=== PATIENT | female | born 1980 | race Caucasian/White ===

== ENCOUNTER 2018-11-01 04:20 | Outpatient (CLI) | payer OTHER, SELFPAY ==
--- NOTE | 2018-11-01 05:36 | OB.TRI.NOTE ---
- Problem List (1) Complete Status: Acute (2) demise before 20 weeks with retention of fetus Status: Acute History of Present Illness Date of Service: 11/01/18 Was patient seen by the physician?: Yes Date of Service: 11/01/18 Final WEST: 01/25/19 Gestational age: 27 Weeks and 6 Days History of Present Illness: 38-year-old G 13 P9 at 27 weeks 6 days presents after complete . Patient had only one visit at 17 weeks in August with a window display designer in the area and she had had spotting throughout the beginning of the and then began bleeding yesterday. She has not felt movement much throughout the and her fundal height was low for gestational age. The chicken and fish cleaner had recommended her to have an evaluation with the patient declined until now. She denies any fevers or abnormal discharge other than bleeding. Upon arrival on labor and delivery patient had a spontaneous loss of the entire contents and an intact gestational sac with intact placenta was seen and a severely emaciated and grossly small for gestational age appearance was noted at delivery with suspicion of loss between 18 and 20 weeks with retention of . The fetus had no gross evidence of genetic abnormalities or trauma. There was a nuchal cord x1 but it was very loose. Placenta was grossly normal in appearance but extremely small for gestational age but consistent with the age of when the was probably lost. - Pertinent Past Medical History Pertinent Past Medical History: Patient has had 9 vaginal deliveries term uncomplicated and 3 early miscarriages between 7 and 9 weeks without complication. Laboratory Studies: Discussed with patient and recommend CBC type and screen hemoglobin A1c TSH and antiphospholipid antibody panel. Patient only consents to CBC and type and screen drawn here she is going to have the other blood work drawn with another provider Review of Systems Constitutional: Denies: Fever, Malaise Eyes: Denies: Blurred vision, Vision Change HEENT: Denies: Head Aches, Visual Changes Cardiovascular: Denies: Chest Pain, Palpitations Respiratory: Denies: Cough, Shortness of Breath, Wheezing Gastrointestinal: Denies: Abdominal Pain, Diarrhea, Nausea, Vomiting Genitourinary: Denies: Dysuria, Hematuria Gynecological: Reports: Vaginal bleeding Musculoskeletal: Denies: Joint Pain, Muscle pain Skin: Denies: Lesions, Rash Neurological: Denies: Blurred vision, Focal weakness, Headaches Psychiatric: Denies: Anxiety, Depression Endocrine: Denies: Heat/ Cold Intolerance Hematologic/ Lymphatic: Denies: Easy Bruising, Easy Bleeding Physical Exam General: Alert, Cooperative, No apparent distress HEENT: Atraumatic, Normocephalic. Negative for: Thyromegaly, Lymphadenopathy Cardiovascular: Regular rate Lungs: Normal air movement Abdomen: Soft, Non Tender Neurological: Deep Tendon Reflexes 2+/4 and Symmetrical, Neuro grossly intact. Negative for: Clonus CUSHION STUFFER: Normal external genitalia - Bleeding evaluated in approximately 200 cc with minimal bleeding afterwards. Negative for: Vulvar lesions Estimated gestational size: Small for gestational age NST - FHR Rate Baby A Baseline: Confirmed demise upon initial evaluation, likely loss 2 mo ago Impression/Plan 38-year-old G 13 P9 at 27 weeks 6 days by gestational age but size appearing to be 18 to 20 weeks presents with complete miscarriage and IUFD Complete spontaneous loss prior to evaluation by physician. Placenta will be sent for studies and CBC and type and screen ordered. Patient hemodynamically stable and bleeding asymptomatic we will monitor for any complications and if stable DC home today.
[2018-11-01 06:00] LABS: Absolute Lymphocyte Count 1.07 X10^3/ul (0.83-4.51); Basophil# 0.01 X10^3/uL; Basophil% 0.1 % (0-1); Eosinophil# 0.08 X10^3/uL; Eosinophils% 0.9 % (0-5); Hematocrit 40.2 % (37-47); Hemoglobin 13.8 g/dl (12.0-15.0); Lymphocyte # 1.07 X10^3/ul (4.0); Lymphocyte % 12.5 % (19-41); Mean Corp Hgb Conc 34.3 g/gl (32-36); Mean Corpuscular Hgb 30.7 pg (27.0-32.0); Mean Corpuscular Volume 89.5 fL (81-99); Mean Platelet Vol. 9.2 fl (6.2-12.0); Monocyte# 0.42 X10^3/uL; Monocyte% 4.9 % (0-10); Neutrophil # 6.95 X10^3/uL (2.7-7.7); Neutrophil % 81.5 % (47-70); Platelet Count 218 K/mm3 (150-450); RBC Distribution Width CV 12.2 % (11.6-14.6); RBC Distribution Width SD 39.2 fl (35.1-43.9); Red Blood Count 4.49 M/mm3 (4.2-5.4); White Blood Count 8.5 K/mm3 (4.4-11.0)
[2018-11-01 06:03] LABS: POSITIVE COUNT NO; POSITIVE DIFFERENTIAL NO; POSITIVE MORPHOLOGY NO
--- NOTE | 2018-11-01 06:49 | NURSING ---
fetus weight 122grams; Head circumference 5inches; length 8 inches.
[2018-11-01 07:42] VITALS: BMI 30.9
--- NOTE | 2018-11-01 08:26 | PLAC_PTH ---
PATIENT: OMI DAVEY LOC: [facility] U#:[id number] AGE/SX: 38/F ROOM: RE11/01/[address]: Dr. Tania Cr MD : 1980 BED: DIS: 11/01/2018 SPEC #: [id number] RECD: 11/01/18 09:07 STATUS: RAI ROSARIOEsteban #: [id number] YUDY: 11/01/18 08:[address]: Tania Cr DEPT: SURGICAL PATHOLOGY RECD BY: Marcelino Blas Tissues: Placenta, NOS Procedures: Surgery Specimen Level V HEADER OPERATION: Vaginal delivery PRE-OP DIAGNOSIS: Routine vaginal delivery; demise TISSUE SUBMITTED: Placenta MICROSCOPIC DIAGNOSIS Placenta: Placental disc - immature placenta (81 gm). - Changes consistent with maternal floor infarction. - Increased intervillous and perivillous fibrin deposition and increased syncytial knots. Membranes - autolytic changes. Umbilical cord - three blood vessels and autolytic changes. SJ:rg 11/03/18 COMMENT Case has been reviewed in consultation with Dr. Morse who concurs with the above diagnosis. IDC:AM MICROSCOPIC DESCRIPTION Slides are reviewed. GROSS DESCRIPTION SPECIMEN: PLACENTA / CLINICAL INFORMATION: A. Weight: Not stated B. Gestational Age: 27 weeks C. Sex: Female Received in fixative is one container labeled with the patient's name and designated placenta. The specimen consists of an immature placenta with attached membranes and eccentrically attached umbilical cord. PLACENTAL WEIGHT (POST FIXATION): 81 gm PLACENTAL DIMENSIONS: 10 x 8 x 2.5 cm PLACENTAL SHAPE: Usual ovoid PLACENTAL WEIGHT FOR GESTATIONAL AGE: <10th percentile MEMBRANES - Present A. Insertion: Marginal B. Site of rupture from edge: At edge of placental disc C. Color of membrane: Rodriguez-rios D. Abnormalities: None UMBILICAL CORD - Present A. Color: Rodriguez-rios B. Insertion: Eccentric C. Length: 26.5 cm D. Diameter: 0.5 cm E. Number of vessels: Three F. Abnormalities: None PLACENTAL DISC - Present A. Color of surface: Rodriguez-rios B. surface abnormalities: None C. Maternal cotyledons: Intact with minimal tears D. Attached retro placental clot: No clot E. Cut surface: Dark red and spongy F. Lesions: None G. Separate clot: Absent SECTIONS SUBMITTED: 1. Umbilical cord ( end notched) 2. Membrane roll 3. Placental disc, and maternal surfaces 4. Placental disc, and maternal surfaces 5. Placental disc, and maternal surfaces AM:fatemeh 11/02/18 TC:5 CPT: 72083
[2018-11-01 08:37] LABS: Pathology Specimen OB SEE PATHOLOGY REPORT
== END 2018-11-01 09:00 | disposition home or self-care (01) ==
LOC: WPOUT 05:19 → WP 05:29
PROVIDERS: Visit Provider Obstetrics & Gynecology
DX: O03.9 Complete or unspecified spontaneous abortion without complication (principal); O36.4XX0 Maternal care for intrauterine death, not applicable or unspecified; Z3A.27 27 weeks gestation of pregnancy
CPT/HCPCS: 36415; 85025; 86850; 86900; 88307; 99218; G0378